=== PATIENT | male | born 1985 | race African-American/Black ===

== ENCOUNTER 2017-07-13 08:55 | Emergency (ER) | payer MEDICAID, OTHER ==
[~2017-07-13] VITALS: Ht 160 cm; Wt 84.0 kg
[2017-07-13] MEDS ORDERED: TETANUS, DIPHTHERIA, PERTUSSIS VAC/PF 0.5ML (>7YR OLD) IM ONE (10:00)
[2017-07-13] MEDS ORDERED: IBUPROFEN 600MG TABLET PO ONE (10:00)
[2017-07-13] MEDS ORDERED: BACITRACIN ZINC OINT UDPKT TOP ONE (10:00)
[2017-07-13] MEDS ORDERED: LIDOCAINE HCL 1% 20ML VIAL (Pyxis) INJ MC ONE (12:30)
[2017-07-13] MEDS ORDERED: LIDOCAINE HCL/PF 1% 10 MG/ML 5ML VIAL ONE (12:40)
[2017-07-13 14:31] VITALS: BP 123/67
== END 2017-07-13 14:32 | disposition home or self-care (01) ==
LOC: ER 09:26
DX: L03.012 Cellulitis of left finger (principal); F12.10 Cannabis abuse, uncomplicated
CPT/HCPCS: 90471; 90715; 99283; J3490; Z7610